=== PATIENT | male | born 1990 | race Caucasian/White ===

== ENCOUNTER 2018-03-11 21:00 | Emergency (ER) | payer OTHER ==
[~2018-03-11] VITALS: Ht 170.2 cm; Wt 72.6 kg
[2018-03-11] MEDS ORDERED: BUSPIRONE PO (21:12)
[2018-03-11] MEDS ORDERED: ADVAIR 100-501 EACH (21:12)
[2018-03-11] MEDS ORDERED: SINGULAIR 10 MG10 M1 (21:12)
[2018-03-11] MEDS ORDERED: TRAZODONE HCL100 MG (21:12)
[2018-03-11] MEDS ORDERED: CELEXA20 MG (21:13)
[2018-03-11] MEDS ORDERED: PROAIR HFA8.5 GM (21:13)
[2018-03-11] MEDS ORDERED: ZYRTEC10 M5 (21:13)
[2018-03-12 00:06] LABS: ABSOLUTE BASOPHILS 0.1 thou/uL (0.0-0.2); ABSOLUTE LYMPHOCYTES 1.1 thou/uL (0.8-5.3); ABSOLUTE NEUTROPHILS 4.2 thou/uL (1.6-8.1); BASOPHILS 0.9 %; EOSINOPHILS 0.5 %; HEMATOCRIT 47.2 % (42.0-52.0); LYMPHOCYTES 17.7 %; MCH 30.5 pg (26.0-34.0); MCHC 33.9 g/dL (28.0-37.0); MCV 89.9 fL (80.0-100.0); MONOCYTES 15.6 %; MPV 8.5 fl. (7.2-11.1); NUCLEATED RBCS 0 /100WBC; PLATELET COUNT* 188 thou/uL (150-400); POLYS 65.3 %; RBC 5.26 mil/uL (4.50-6.00); RDW-CV 12.9 % (10.5-14.5); WBC 6.4 thou/uL (4.0-11.0)
[2018-03-12 00:17] LABS: CALCIUM 9.1 mg/dL (8.5-10.1); POTASSIUM 3.4 mmol/L (3.5-5.1)
[2018-03-12 00:22] LABS: TOTAL BILIRUBIN 0.9 mg/dL (<0.1-1.0); TOTAL PROTEIN 7.7 g/dL (6.4-8.2)
[2018-03-12 00:25] LABS: URINE BILIRUBIN NEGATIVE (Negative); URINE BLOOD NEGATIVE (Negative); URINE CLARITY CLEAR; URINE COLOR YELLOW; URINE GLUCOSE-RANDOM NEGATIVE (Negative); URINE KETONES NEGATIVE (Negative); URINE LEUKOCYTES-REFLEX NEGATIVE (Negative); URINE NITRITE-REFLEX NEGATIVE (Negative); URINE PROTEIN NEGATIVE (Negative); URINE SPECIFIC GRAVITY <= 1.005 (1.005-1.030); URINE UROBILINOGEN 0.2 E.U./dl (0.2-1.0)
[2018-03-12 01:16] LABS: INFLUENZA A ANTIGEN None Detected (None Detect); INFLUENZA B ANTIGEN None Detected (None Detect)
[2018-03-12] MEDS ORDERED: DIAZEPAM 5 MG5 MG PO (01:41)
[2018-03-12] MEDS ORDERED: TORADOL 10 MG T10 MG PO (01:41)
[2018-03-12 01:55] VITALS: BP 115/63
== END 2018-03-12 01:55 | disposition home or self-care (01) ==
LOC: M.ERS 21:00
PROVIDERS: Personal Emergency Response Attendant
DX: R50.9 Fever, unspecified (principal); M79.1 Myalgia; R42 Dizziness and giddiness; F41.9 Anxiety disorder, unspecified; Z88.8 Allergy status to other drugs, medicaments and biological substances